=== PATIENT | male | born 1960 | race Caucasian/White ===

== ENCOUNTER 2016-10-31 12:07 | Emergency (ER) | payer BC ==
[2016-10-31 12:13] VITALS: BP 140/80; PULSE 84; TEMP 98; BMI 29.8
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
--- NOTE | 2016-10-31 17:10 | CONS ---
DATE OF CONSULTATION: DATE OF DICTATION: 10/31/2016 INFECTIOUS DISEASE CONSULTATION HISTORY OF PRESENT ILLNESS: The patient is a 76-year-old male who is evaluated for possible recurrent herpes zoster on the right periorbital area. The patient was seen by his primary care physician in August of this year after presenting with right periorbital pain and swelling, he was found to have "bumps" in the right periorbital area and in the right parietal area. He was treated with a course of Valtrex with improvement. He had come to my office in followup approximately 1 week later. There was no evidence of a vesicular rash at that time, and his periorbital pain had resolved. He now presents with similar complaint of right periorbital pain, right temporal pain with no evidence of vesicular rash. He has no change in his visual acuity or other visual disturbance. PAST MEDICAL HISTORY: As above. Patient had a history of osteomyelitis of the mandible in the past secondary to a dental infection. He received a 6-week course of IV antibiotic therapy at that time. ALLERGIES: AMOXICILLIN. CIPROFLOXACIN. 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 He is a nonsmoker, nondrinker. PHYSICAL EXAMINATION: General: He is awake and alert. He is not acutely toxic appearing, in no acute distress. Vital signs: He is afebrile. Temperature 98, blood pressure 140/80, pulse 84 and regular, respirations 18 per minute. HEENT: Examination of the head, the right eye, there is no periorbital edema or evidence of vesicular rash, conjunctivae is not injected. There is no ocular discharge. Visual acuity is intact. Extraocular muscles are intact. No evidence of rash in the scalp area. Neck: Supple with no palpable nodes. Cardiovascular: Heart sounds S1, S2. Respiratory: Lungs clear. Abdomen: Soft. Nontender. IMPRESSION: Probable post herpetic neuralgia, cannot rule out a prodrome or recurrent herpes zoster. Will prescribe Valtrex 1 g p.o. t.i.d. for 7 days, monitor for development of vesicular eruption. Patient will follow up with an cash management officer. I have asked them to contact me should he develop any worsening symptoms or rash on therapy. He will follow up in the office in approximately 1-2 weeks' time. If he continues to have symptoms, we will obtain blood work including sedimentation rate and C-reactive protein as well as routine lab work. On review of previous lab data, blood work from May 2016 is unremarkable. Thank you for the kind referral. JULIETTE THOMAS M.D. [id number]
== END 2016-10-31 13:46 | disposition home or self-care (01) ==
LOC: JERFT 12:07
DX: G50.1 Atypical facial pain (principal); Z85.46 Personal history of malignant neoplasm of prostate; Z86.69 Personal history of other diseases of the nervous system and sense organs
CPT/HCPCS: 99281-25

== ENCOUNTER 2017-04-10 10:11 | Emergency (ER) | payer OTHER, BC ==
[2017-04-10 10:16] VITALS: BP 159/108; PULSE 116; TEMP 99; BMI 30.5
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
== END 2017-04-10 12:17 | disposition home or self-care (01) ==
LOC: JER 10:11
DX: M54.2 Cervicalgia (principal); V43.52XA Car driver injured in collision with other type car in traffic accident, initial encounter; W22.11XA Striking against or struck by driver side automobile airbag, initial encounter; Y92.414 Local residential or business street as the place of occurrence of the external cause; Y93.89 Activity, other specified; Y99.0 Civilian activity done for income or pay
CPT/HCPCS: 99281-25